=== PATIENT | male | born 1980 | race Native Hawaiian/Other Pacific Islander ===

== ENCOUNTER 2019-12-15 15:44 | Emergency (ER) | payer SELFPAY ==
[2019-12-15] MEDS ORDERED: IBUPROFEN 600 MG TABLET PO ONE (16:24)
[2019-12-15] MEDS ORDERED: DIAZEPAM 5 MG TABLET PO ONE (16:24)
--- NOTE | 2019-12-15 16:38 | Emergency Department Record ---
History of Present Illness - General Chief complaint: Extremity Problem Stated complaint: SHOULDER INJURY Time Seen by Provider: 12/15/19 16:24 Source: Patient Mode of Arrival: Ambulatory Limitations: No limitations - History of Present Illness Initial comments: Pt to the ED with complaint of "I got lots of pain man!". Pt states he was sanding drywall all day yeaterday and woke with pain to the right neck and shoulder worse with motion of the arm and turning his head. No trauma or fall. Pt smoked marijuana today for the pain without relief. No hx of similar. No numbness to arm. No GARCÍA. Onset/Timin -: Days(s) Location: Right, Shoulder History of Same: No Radiation: None Severity scale (1-10): 9 Quality: Sharp Consistency: Constant Improves with: Nothing Worsens with: Exertion Associated Symptoms: Denies other symptoms - Related Data Previous Rx's Medication Instructions Recorded Diazepam [Valium] 5 mg PO Q8H 3 Days #10 tab 12/15/19 Ibuprofen [Motrin 600Mg] 600 mg PO Q6H 4 Days #20 tablet 12/15/19 Allergies Allergy/AdvReac Type Severity Reaction Status Date / Time No Known Drug Allergies Allergy Verified 12/15/19 15:56 Travel/Exposure Screening - Travel/Exposure Within Last 30 Days Have you traveled within the last 30 days?: No - Travel/Exposure Within Last Year Have you traveled outside the [place] in the last year?: No - Additonal Travel/Exposure Details Have you been exposed to anyone with a communicable illness?: No - Travel Symptoms Symptom Screening: None Review of Systems Constitutional: Denies: Chills, Fever Eyes: Denies: Eye pain, Photophobia ENT: Denies: Congestion, Ear pain Respiratory: Denies: Cough Cardiovascular: Denies: Chest pain, Palpitations, Syncope Endocrine: Denies: Fatigue Gastrointestinal: Denies: Abdominal pain Musculoskeletal: Reports: As per HPI Skin: Denies: Bruising, Rash Neurological: Denies: Headache, Tingling, Tremors, Weakness Psychiatric: Denies: Anxiety Hematological/Lymphatic: Denies: Anemia Past Medical History - SOCIAL HISTORY Smoking Status: Current every day smoker Alcohol Use: None Drug Use: None - RESPIRATORY Hx Respiratory Disorders: No - CARDIOVASCULAR Hx Cardio Disorders: No - NEURO Hx Neuro Disorders: No - GI Hx GI Disorders: No - Hx Genitourinary Disorders: No - ENDOCRINE Hx Endocrine Disorders: No - MUSCULOSKELETAL Hx Musculoskeletal Disorders: No - PSYCH Hx Psych Problems: No - HEMATOLOGY/ONCOLOGY Hx Hematology/Oncology Disorders: No Family Medical History Any Significant Family History?: No Physical Exam - General General Appearance: Alert, Oriented x3, Cooperative, Mild distress - Head Head exam: Atraumatic, Normocephalic - Eye Eye exam: Normal appearance, PERRL - ENT ENT exam: Normal exam, Mucous membranes moist - Neck Neck exam: Tenderness, Other (Right SCM muscle spasm into right trap muscles. Decreased rotation to the right. ). negative: Lymphadenopathy, Meningismus - Respiratory Respiratory exam: Normal lung sounds bilaterally. negative: Rhonchi - Cardiovascular Cardiovascular Exam: Regular rate, Normal rhythm - GI/Abdominal GI/Abdominal exam: Soft. negative: Tenderness - Extremities Extremities exam: Normal inspection, Full ROM, Other (right shoulder without deformity pr tenderness. ). negative: Tenderness - Back Back exam: Reports: Normal inspection, Other (necka s above) - Neurological Neurological exam: Alert, Normal gait, Oriented X3. negative: Motor sensory deficit - Psychiatric Psychiatric exam: Agitated, Normal affect, Normal mood - Skin Skin exam: Normal color. negative: Rash Course Vital Signs 12/15/19 15:58 Temperature 98.5 F Pulse Rate 70 Respiratory 20 Rate Blood Pressure 97/52 Pulse Ox 100 - Reevaluation(s) Reevaluation #1: 12/15/19 16:41 Pt with muscle spasm to right neck and trap. Instant relief with web pressure right thumb. Long talk on home treatment with hot shower followed by ICE. Motrin and Valium. Return as needed. Disposition Disposition: Discharge Clinical Impression: Torticollis, spasmodic Disposition: Home, Self-Care Condition: (1) Good Instructions: Spasmodic Torticollis (ED) Additional Instructions: Warm shower with ice afterward to the left shouler and neck Take meds as instructed. DO NOT take Valium when out of home or driving. Family Doctor recheck in 2 days. Return to the Ed as needed. Prescriptions: Ibuprofen [Motrin 600Mg] 600 mg PO Q6H 4 Days #20 tablet Diazepam [Valium] 5 mg PO Q8H 3 Days #10 tab Forms: Patient Portal Access Time of Disposition: 16:38 Quality - Quality Measures Quality Measures: N/A - Blood Pressure Screening Does Patient Have Any of the Following: No Blood Pressure Classification: Normal BP Reading Systolic Measurement: 97 Diastolic Measurement: 52 Screening for High Blood Pressure: < Normal BP, F/U Not Required > [G8783] Pre-Hypertensive Follow-up Interventions: Follow-up with rescreen every year.
== END 2019-12-15 17:09 | disposition home or self-care (01) ==
LOC: ER 15:44
DX: G24.3 Spasmodic torticollis (principal); F17.210 Nicotine dependence, cigarettes, uncomplicated
CPT/HCPCS: 99283 ×2; J3490